=== PATIENT | female | born 1945 | race Caucasian/White ===

== ENCOUNTER 2018-12-20 01:22 | Outpatient (CLI) | payer MEDICARE, BC, SELFPAY ==
--- NOTE | 2018-12-20 10:40 | MERGE_ITS ---
*[facility]* *[facility]* [address] [place] [address] Date of study: 12/20/2018 Transthoracic Echocardiography M-mode, complete 2D, complete spectral Doppler, and color Doppler *STUDY CONCLUSIONS* Summary: 1. Left ventricle: The cavity size was normal. Wall thickness was normal. Systolic function was normal. The estimated ejection fraction was 60-65%. Wall motion was normal; there were no regional wall motion abnormalities. 2. Right ventricle: The cavity size was normal. Systolic function was normal. 3. Pulmonary arteries: Pulmonary systolic pressure was within the normal range, in the range of 25mm Hg to 30mm Hg. 4. Inferior vena cava: The vessel was patent and normal in size. The respirophasic diameter changes were in the normal range (greater than or equal to 50%), consistent with normal central venous pressure. *PATIENT PRESENTATION* Height: 165.1cm ((65in) ) S/D Pressure: 156 / 80 Weight: 86.2kg ((189.6lb) ) BSA: 2.02m^2 Test start time: 10:45 AM. Test stop time: 11:30 AM. PERFORMING Unknown CONSULTING Phillip Reeder Kevin D REFERRING Murray Villar PERFORMING [facility] COBOL APPLICATION DEVELOPER RT Rosi Salvador)(CAROLANN)CLAUDIO *PROCEDURE DATA* Procedure information: This study was interpreted by [facility]. Pertinent images and digital data are archived for permanent storage and are available for subsequent review. No prior study was available for comparison. Study status: Routine. Transthoracic echocardiography. M-mode, complete 2D, complete spectral Doppler, and color Doppler. A Transthoracic Echocardiogram was performed. Scanning was performed from the parasternal, apical, subcostal, and suprasternal notch acoustic windows. Images were obtained using an [id number] cardiac ultrasound machine. Image quality was adequate. Study completion: The patient tolerated the procedure well. There were no complications. History: PMH: Shortness of breath R06.02. *CARDIAC ANATOMY* Left ventricle: The cavity size was normal. Wall thickness was normal. Systolic function was normal. The estimated ejection fraction was 60-65%. Wall motion was normal; there were no regional wall motion abnormalities. Findings consistent with diastolic dysfunction. There was no evidence of elevated ventricular filling pressure by Doppler parameters. Aortic valve: Trileaflet; normal thickness leaflets. Mobility was not restricted. Doppler: Transvalvular velocity was within the normal range. There was no stenosis. There was trivial regurgitation. VTI ratio of LVOT to aortic valve: 0.75. Valve area (VTI): 2.2cm^2. Indexed valve area (VTI): 1.1cm^2/m^2. Peak velocity ratio of LVOT to aortic valve: 0.67. Valve area (Vmax): 2cm^2. Indexed valve area (Vmax): 1cm^2/m^2. Mean velocity ratio of LVOT to aortic valve: 0.62. Valve area (Vmean): 1.8cm^2. Indexed valve area (Vmean): 0.9cm^2/m^2. Mean gradient (S): 3.4mm Hg. Peak gradient (S): 7mm Hg. Aorta: Aortic root: The aortic root was normal in size. Ascending aorta: The ascending aorta was normal in size. Mitral valve: Mildly thickened leaflets. Mobility was not restricted. Doppler: Transvalvular velocity was within the normal range. There was no evidence for stenosis. There was trivial regurgitation. Valve area by pressure half-time: 3.6cm^2. Indexed valve area by pressure half-time: 1.8cm^2/m^2. Peak gradient (D): 3.1mm Hg. Left atrium: The atrium was normal in size. Right ventricle: The cavity size was normal. Systolic function was normal. Pulmonic valve: The pulmonary valve appears to be grossly normal. Doppler: Transvalvular velocity was within the normal range. There was no evidence for stenosis. There was no significant regurgitation. Tricuspid valve: Structurally normal valve. Doppler: Transvalvular velocity was within the normal range. There was no evidence for stenosis. There was mild regurgitation. Pulmonary artery: The main pulmonary artery was normal-sized. Pulmonary systolic pressure was within the normal range, in the range of 25mm Hg to 30mm Hg. Right atrium: The atrium was normal in size. Pericardium: There was no pericardial effusion. Systemic veins: Inferior vena cava: Well visualized. The vessel was patent and normal in size. The respirophasic diameter changes were in the normal range (greater than or equal to 50%), consistent with normal central venous pressure. Baseline ECG: Normal sinus rhythm. Measurements Left ventricle Value Reference LV ID, ED, PLAX 5.2 cm 3.5 - 6.0 LV ID, ES, PLAX 3.5 cm 2.1 - 4.0 LV PW thickness, ED, PLAX 1.0 cm LV end-diastolic volume, 1-p A2C 79 ml LV ejection fraction, 1-p A2C 63 % LV end-diastolic volume, 1-p A4C 74 ml LV ejection fraction, 1-p A4C 68 % LV e', lateral 0.083 m/sec LV E/e', lateral 11 LV e', medial 0.083 m/sec LV E/e', medial 11 LV e', average 0.083 m/sec LV E/e', average 11 Ventricular septum Value Reference IVS thickness, ED, PLAX 0.9 cm LVOT Value Reference LVOT ID, A-P 1.9 cm LVOT area 2.9 cm^2 LVOT peak velocity, S 0.89 m/sec LVOT mean velocity, S 0.55 m/sec LVOT VTI, S 18.7 cm LVOT peak gradient, S 3.2 mm Hg LVOT mean gradient, S 1.5 mm Hg Stroke volume (SV), LVOT DP 54 ml Stroke index (SV/bsa), LVOT DP 27 ml/m^2 Aortic valve Value Reference Aortic valve peak velocity, S 1.3 m/sec Aortic valve mean velocity, S 0.89 m/sec Aortic valve VTI, S 25.0 cm Aortic mean gradient, S 3.4 mm Hg Aortic peak gradient, S 7 mm Hg VTI ratio, LVOT/AV 0.75 Aortic valve area, VTI 2.2 cm^2 Velocity ratio, peak, LVOT/AV 0.67 Aortic valve area, peak velocity 2 cm^2 Velocity ratio, mean, LVOT/AV 0.62 Aortic valve area, mean velocity 1.8 cm^2 Aortic valve area/bsa, mean velocity 0.9 cm^2/m^2 Aorta Value Reference Aortic root ID, ED 3.4 cm Ascending aorta ID, A-P, S 3.1 cm Left atrium Value Reference LA ID, A-P, ES 3.5 cm LA ID/bsa, A-P 1.7 cm/m^2 <=2.2 LA area, ES, A4C 19.5 cm^2 8.8 - 23.4 LA area, ES, A2C 14 cm^2 LA volume, ES, 2-p 44 ml LA volume/bsa, ES, 2-p 22 ml/m^2 LA/aortic root ratio 1.01 Mitral valve Value Reference Mitral E-wave peak velocity 0.88 m/sec Mitral A-wave peak velocity 0.67 m/sec Mitral deceleration time 212 ms 150 - 230 Mitral pressure half-time 61 ms Mitral peak gradient, D 3.1 mm Hg Mitral E/A ratio, peak 1.32 Mitral valve area, PHT, DP 3.6 cm^2 Pulmonary veins Value Reference Pulmonary vein peak velocity, S 0.69 m/sec Pulmonary vein peak velocity, D 0.44 m/sec Pulmonary vein velocity ratio, peak, 1.56 S/D Pulmonary vein A-wave reversal peak 0.31 m/sec velocity Pulmonary vein A-wave reversal 171 ms duration Tricuspid valve Value Reference Tricuspid regurg peak velocity 2.6 m/sec Tricuspid peak RV-RA gradient 26.1 mm Hg Right atrium Value Reference RA area, ES, A4C 14.6 cm^2 8.3 - 19.5 Legend: (L) and (H) jose values outside specified reference range. I have personally reviewed the images and have reviewed and edited the reported findings. Electronically signed by Dilma Saxena 12/20/2018 12:14
== END 2018-12-20 01:42 ==
PROVIDERS: PCP Family Medicine; Visit Provider Internal Medicine
DX: R06.02 Shortness of breath (principal)
CPT/HCPCS: 93306

== ENCOUNTER 2019-07-20 01:17 | Outpatient (CLI) | payer MEDICARE, BC, SELFPAY ==
[2019-07-21 16:34] LABS: Zinc, Serum 0.84 mcg/mL (0.66-1.10)
[2019-07-25 11:36] LABS: Pyridoxal 5-Phosphate (PLP), P 7 mcg/L (5-50)
[2019-07-28 09:36] LABS: Biotin (Vitamin B7), Serum 618.1 pg/mL
== END 2019-07-20 01:37 ==
LOC: LOS 01:17 → LBO 08:37
PROVIDERS: PCP Family Medicine; Visit Provider Otolaryngology Otolaryngology/Facial Plastic Surgery
DX: L21.9 Seborrheic dermatitis, unspecified (principal); L71.0 Perioral dermatitis
CPT/HCPCS: 36415; 84591; 84207; 84630

== ENCOUNTER 2020-06-06 03:30 | Outpatient (CLI) | payer MEDICARE, BC, SELFPAY ==
[2020-06-06 12:52] LABS: Anion Gap 7.5 mmol/L (3-11); BUN 18 mg/dL (7-18); CO2 27.5 mmol/L (21.0-32.0); CREATININE 0.71 mg/dL (0.55-1.02); Calcium 9.4 mg/dL (8.5-10.1); Chloride 105 mmol/L (98-107); Glucose 121 mg/dL (74-106); Potassium 4.4 mmol/L (3.5-5.1); Sodium 140 mmol/L (136-145)
== END 2020-06-06 03:50 ==
PROVIDERS: PCP Nurse Practitioner Family; Visit Provider Family Medicine
DX: T78.3XXA Angioneurotic edema, initial encounter (principal)
CPT/HCPCS: 36415; 80048

== ENCOUNTER 2021-02-28 10:20 | Outpatient (REF) | payer MEDICARE, SELFPAY ==
[2021-03-01 11:17] LABS: Lyme Ab w Rflx to Lyme Confirm Negative (Negative)
[2021-03-04 17:45] LABS: Anaplasma phagocytophilum Negative (Negative); B. miyamotoi PCR Negative (Negative); Babesia divergens/MO-1 Negative (Negative); Babesia duncani Negative (Negative); Babesia microti Negative (Negative); Ehrlichia chaffeensis Negative (Negative); Ehrlichia ewingii/canis Negative (Negative); Ehrlichia muris eauclairensis Negative (Negative)
== END 2021-02-28 10:21 | disposition home or self-care (01) ==
LOC: LBN 10:20
PROVIDERS: Nurse Practitioner Family; PCP Nurse Practitioner Family; Visit Provider Nurse Practitioner Family
DX: W57.XXXA Bitten or stung by nonvenomous insect and other nonvenomous arthropods, initial encounter (principal); T14.8XXA Other injury of unspecified body region, initial encounter
CPT/HCPCS: 87798; 86618

== ENCOUNTER 2021-04-23 17:24 | Outpatient (CLI) | payer MEDICARE, SELFPAY ==
--- NOTE | 2021-04-23 14:30 | DI.RAD_ITS ---
Exam(s) XR FOOT RT COMPLETE EXAM: XR FOOT RT COMPLETE CLINICAL HISTORY: stubbed toes 3-4-5, BRUISE OF TOE, S90.129A. TECHNIQUE: 2D digital imaging was performed. COMPARISON: No exams were available for comparison FINDINGS: BONES: No acute fracture is present. No bony destructive lesion is seen. There is an enthesophyte at the Achilles insertion site. JOINTS: No dislocation present. SOFT TISSUE: There is some swelling of the right 4th toe. IMPRESSION: No acute fracture or dislocation. DATA REPOSITORY: RADIATION DOSE DELIVERED:
== END 2021-04-23 17:44 ==
PROVIDERS: PCP Nurse Practitioner Family; Visit Provider Nurse Practitioner
DX: S90.121A Contusion of right lesser toe(s) without damage to nail, initial encounter (principal); M79.89 Other specified soft tissue disorders
CPT/HCPCS: 73630

== ENCOUNTER 2021-12-09 00:20 | Outpatient (CLI) | payer MEDICARE, SELFPAY ==
--- NOTE | 2021-12-09 11:30 | DI.MAMMO_ITS ---
Exam(s) MAMMO SCREENING EXAM: MAMMO SCREENING CLINICAL HISTORY: screening,z12.39 TECHNIQUE: Mammograms were interpreted according to the usual protocol including computer analysis w [employer] CAD system, tomosynthesis and C-view imaging. COMPARISON: 2014 and 2017 FINDINGS: The breasts are composed of mainly fatty density , Breast Density category A. No suspicious masses or suspicious microcalcifications are seen. No skin thickening or abnormal axillary lymph nodes are seen. There has been no significant change from prior exams. IMPRESSION: BI-RADS Category 1, Negative mammogram Yearly screening mammography is recommended. Breast Density - Category A, fatty density. A negative radiographic report should not delay biopsy if a dominant or clinically suspicious mass is present. Up to ten percent of cancers are not identified on mammography. A negative report may reinforce clinical impression. Adenosis and dense breasts may obscure an underlying neoplasm. False positive reports average 6 to 10%. Patient will receive a letter notifying them of these results.
== END 2021-12-09 00:40 ==
PROVIDERS: PCP Family Medicine; Visit Provider Family Medicine
DX: Z12.31 Encounter for screening mammogram for malignant neoplasm of breast (principal)
CPT/HCPCS: 77063; 77067

== ENCOUNTER 2021-12-09 01:38 | Outpatient (CLI) | payer MEDICARE, SELFPAY ==
[2021-12-09 12:56] LABS: BUN 16 mg/dL (7-18); CREATININE 0.7 mg/dL (0.55-1.02); Calculated LDL 101 mg/dL (<100); Chloride 103 mmol/L (98-107); Cholesterol 206 mg/dL (<200); Glucose 95 mg/dL (74-106); HDL Cholesterol 79 mg/dL (40-60); Potassium 4.3 mmol/L (3.5-5.1); Sodium 141 mmol/L (136-145); TSH (W/Ref FT4) 1.14 uIU/mL (0.36-3.74); Triglyceride 131 mg/dL (<150)
== END 2021-12-09 01:39 | disposition home or self-care (01) ==
LOC: LBO 01:38
PROVIDERS: PCP Family Medicine; Visit Provider Family Medicine
DX: I10 Essential (primary) hypertension (principal); E01.0 Iodine-deficiency related diffuse (endemic) goiter; Z00.00 Encounter for general adult medical examination without abnormal findings
CPT/HCPCS: 36415; 80048; 80061; 84443

== ENCOUNTER 2021-12-13 00:44 | Outpatient (CLI) | payer MEDICARE, SELFPAY ==
--- NOTE | 2021-12-13 08:15 | DI.US_ITS ---
Exam(s) US THYROID EXAM: US THYROID CLINICAL HISTORY: right sided thyroid enlargement,E01.0. TECHNIQUE: Ultrasound thyroid performed using standard protocol. COMPARISON: No exams were available for comparison FINDINGS: ISTHMUS: mm RIGHT LOBE: Size: 4.6 x 2.5 x 3.3 cm Echogenicity: Heterogeneous. Vascularity: Normal. Nodules: The largest nodule in the right lobe is a mixed cystic and solid isoechoic nodule measuring 2.6 x 2.2 x 2.9 cm. This is consistent with a TIRADS level 2 nodule. There is a mixed cystic and shwetha d isoechoic nodule measuring 1.6 x 1.4 x 1.9 cm. This consistent with a TIRADS level 2 nodule. LEFT LOBE: Size: 5.1 x 1 x 1.4 cm Echogenicity: Heterogeneous. Vascularity: Normal. Nodules: There is a 1 x 0.8 x 1.3 cm hypoechoic nodule in the superior pole of the left lobe. This is consistent with a TIRADS level 3 nodule. OTHER FINDINGS: There is a 2 x 0.9 x 1.4 cm hypoechoic extrathyroidal nodule adjacent to the left lob e. It is vascular. This may represent a lymph node, but has a sonographically abnormal appearance. IMPRESSION: 1. Multinodular thyroid gland. 2. 2 x 0.9 x 1.4 cm hypoechoic vascular extrathyroidal nodule adjacent to the left lobe. A CT scan of the neck with contrast is recommended for further evaluation. DATA REPOSITORY:
== END 2021-12-13 01:04 ==
PROVIDERS: PCP Family Medicine; Visit Provider Family Medicine
DX: E04.2 Nontoxic multinodular goiter; E07.89 Other specified disorders of thyroid
CPT/HCPCS: 76536

== ENCOUNTER 2021-12-30 01:20 | Outpatient (CLI) | payer MEDICARE, SELFPAY ==
--- NOTE | 2021-12-30 07:00 | DI.CT_ITS ---
Exam(s) CT NECK W EXAM: CT NECK W CLINICAL HISTORY: neck mass, f/u u/s,e01.0,r22.1. TECHNIQUE: Imaging Protocol: Axial CT angiography was performed with multi-slice acquisition and mu lti-planar and/or 3D reconstructions. CONTRAST MATERIAL: Intravenous: Omnipaque 350 Contrast volume:100 mL COMPARISON: US US THYROID from 12/13/2021 FINDINGS: Nasopharynx: Unremarkable Oropharynx: Calcified bilateral tonsilliths. Otherwise unremarkable. Hypopharynx: Free edge of the epiglottis appears unremarkable as do the aryepiglottic folds. Vocal cords: No obvious mass. Subglottic airway appears unremarkable. Salivary glands: Parotid and submandibular glands appear unremarkable. No masses. No calculi. Thyroid gland: Right thyroid lobe is significantly enlarged and heterogeneous containing nodules. Is thmus exhibits normal thickness. Left thyroid lobe exhibits normal size but also appears to contain nodule(s). LYMPH NODES: Immediately anterior to the left internal jugular vein and intimately associated with th e left sternocleidomastoid muscle is a uniformly enhancing well-defined nodule measuring 1.4 x 1.0 cm nodule which corresponds to the finding described on the recent thyroid ultrasound. No calcificatio ns seen therein. There is another abnormal nodule seen below the left thyroid lobe measuring 1.8 cm wide by 1.4 cm AP by 1.4 cm craniocaudal. This is just above the innominate vein in the uppermost left mediastinum. I t contains hyperdense foci, either enhancing or calcifications. VASCULAR: Patent carotid arteries in the neck. No significant stenosis. IMPRESSION: 1. Two different appearing abnormal nodules in the left side of the neck, as described above. More c ephalad of these is what was described on the recent thyroid ultrasound. The more caudal appears par tially calcified and is in the left suprasternal notch adipose tissue just above the innominate vein. These may or may not be related to the pathology evident in the thyroid gland. It is in seen to no te that these are left-sided abnormalities, where as the majority of pathology in the thyroid gland i s in the abnormally enlarged right thyroid lobe. ENT consultation is recommended.. RADIATION DOSE DELIVERED: 262.27mGy.cm Total DLP DATA REPOSITORY: All CT scans at this facility are submitted to the National Radiology Data Registry (NRDR) Dose Index Registry (DIR) with the [employer] (ACR). RADIATION OPTIMIZATION: All CT scans at this facility use at least one of these dose optimization te chniques: automated exposure control; mA and/or kV adjustment per patient size (includes targeted exa ms where dose is matched to clinical indication); or iterative reconstruction.
[2021-12-30] MEDS: Omnipaque 350 MG/ML 100 ML BTL IJ (08:44)
[2021-12-30] MEDS: Normal Saline Flush 10 ML SYR IVP (08:56)
== END 2021-12-30 01:40 ==
PROVIDERS: PCP Family Medicine; Visit Provider Family Medicine
DX: R22.1 Localized swelling, mass and lump, neck (principal); E01.1 Iodine-deficiency related multinodular (endemic) goiter; E07.89 Other specified disorders of thyroid; J98.59 Other diseases of mediastinum, not elsewhere classified; M62.89 Other specified disorders of muscle
CPT/HCPCS: 70491; J3490

== ENCOUNTER → 2022-06-18 13:02 | Outpatient (CLI) | payer MEDICARE, SELFPAY ==
--- NOTE | 2022-06-18 12:00 | DI.RAD_ITS ---
Exam(s) XR KNEE RT 3V AP,LAT,KEARA EXAM: XR KNEE RT 3V AP,LAT,KEARA CLINICAL HISTORY: Right Knee Pain-M25.561 TECHNIQUE: COMPARISON: No exams were available for comparison FINDINGS: Three views were obtained. Cartilaginous joint spaces appear well maintained. No gross joint effusi on seen on the lateral film. No bony abnormality seen. IMPRESSION: Negative examination of the knee. RADIATION DOSE DELIVERED: Total DLP
== END ==
PROVIDERS: PCP Family Medicine; Visit Provider Family Medicine
DX: M25.561 Pain in right knee (principal)
CPT/HCPCS: 73562

== ENCOUNTER 2022-08-11 01:24 | Outpatient (CLI) | payer MEDICARE, SELFPAY ==
--- NOTE | 2022-08-11 07:45 | DI.US_ITS ---
Exam(s) US THYROID EXAM: US THYROID CLINICAL HISTORY: assess for change,THYROID NODULE,LYMPH NODE ENLARGEMENT,E04.1,R59.9. TECHNIQUE: Ultrasound thyroid performed using standard protocol. COMPARISON: US US THYROID from 12/13/[address] NECK W from 12/30/2021 FINDINGS: ISTHMUS: 2 mm RIGHT LOBE: Size: 5.9 x 2.3 x 3.7 cm Echogenicity: Normal. Vascularity: Normal. Nodules: On the prior exam, 2 separate nodules were measured as well as a cyst at the inferior pole. On the current exam, the nodules were measured as 1 the large nodule. A discrete cystic areas is no t visible at the lower pole. The nodule measures 4.8 x 2.7 x 4 cm smoothly marginated and shows mixe d cystic and solid components. The echogenicity is isoechoic. No echogenic foci are identified. TR 2 LEFT LOBE: Size: 5.0 x 1.4 x 1.3 cm Echogenicity: Heterogeneous. Vascularity: Normal. Nodules: Multiple small nodules. 1.5 x 1.5 x 0.7 centimeter mixed cystic and solid lesion, isoechoic without echogenic foci, TR 2. 1 by 0.9 x 0.8 cm nodule at the lower pole is solid, hypoechoic, with ill-defined margins and without echogenic foci, TR 4. OTHER FINDINGS: There has been no change in size of the markedly hyperemic lymph node seen lateral to the upper pole of the left lobe, measuring 2.0 x 0.9 x 1.4 cm. IMPRESSION: No significant changes size are appearance of the right-sided nodule. No change in the size of the h yperemic lymph node in the left side of the neck. 1 centimeter nodule lower pole left lobe, TR 4, fo llow-up recommended. DATA REPOSITORY:
== END 2022-08-11 01:44 ==
LOC: DI 01:26
PROVIDERS: PCP Family Medicine; Visit Provider Otolaryngology
DX: E04.1 Nontoxic single thyroid nodule (principal); R59.0 Localized enlarged lymph nodes
CPT/HCPCS: 76536

== ENCOUNTER 2022-12-03 02:06 | Outpatient (CLI) | payer MEDICARE, SELFPAY ==
[2022-12-03 12:46] LABS: Anion Gap 6.2 mmol/L (3-11); BUN 17 mg/dL (7-18); CO2 29.8 mmol/L (21.0-32.0); CREATININE 0.8 mg/dL (0.55-1.02); Calcium 9.4 mg/dL (8.5-10.1); Chloride 105 mmol/L (98-107); Estimated GFR 76.31 (mL/min/1.73m2); Glucose 107 mg/dL (74-106); Potassium 4.7 mmol/L (3.5-5.1); Sodium 141 mmol/L (136-145)
[2022-12-03 13:05] LABS: Hemoglobin A1C 5.9 % (<5.7)
== END 2022-12-03 02:07 | disposition home or self-care (01) ==
LOC: LOS 02:06
PROVIDERS: PCP Family Medicine; Visit Provider Family Medicine
DX: I10 Essential (primary) hypertension (principal); R73.01 Impaired fasting glucose; E66.09 Other obesity due to excess calories; Z68.32 Body mass index [BMI] 32.0-32.9, adult
CPT/HCPCS: 36415; 80048; 83036

== ENCOUNTER 2023-01-02 00:35 | Outpatient (CLI) | payer MEDICARE, SELFPAY ==
--- NOTE | 2023-01-02 08:30 | DI.DEXA_ITS ---
Exam(s) XR DEXA BONE DENSITY W/WO ELISE EXAM: XR DEXA BONE DENSITY W/WO ELISE CLINICAL HISTORY: loss of height,N95.9,SCREENING FOR OSTEOPOROSIS TECHNIQUE: H[employer] Horizon C densitometer analysis of left hip, lumbar spine and left forearm. COMPARISON: No exams were available for comparison FINDINGS: Lateral view of the thoracic and lumbar spine shows no evidence of compression fractures. Bone mineral density measurements of the lumbar spine correspond to a total T-score of 1.0, in the n ormal range. Bone mineral density measurements of the left hip correspond to a total T-score of 0.1. The femoral neck T-score is -1.3, in the mildly osteopenic range.. The left forearm bone mineral density measurements correspond to a T-score of the distal 3rd of -0.7 , in the normal range.. IMPRESSION: Normal bone mineral density of the lumbar spine and forearm. Mild osteopenia of the hip.
== END 2023-01-02 00:55 ==
LOC: DI 00:35
PROVIDERS: PCP Family Medicine; Visit Provider Family Medicine
DX: N95.9 Unspecified menopausal and perimenopausal disorder (principal); Z13.820 Encounter for screening for osteoporosis; M85.88 Other specified disorders of bone density and structure, other site
CPT/HCPCS: 77080

== ENCOUNTER → 2023-08-17 02:02 | Outpatient (CLI) | payer MEDICARE, SELFPAY ==
--- NOTE | 2023-08-17 08:00 | DI.US_ITS ---
Exam(s) US THYROID EXAM: US THYROID CLINICAL HISTORY: Enlarged lymph node/assess change thyroid nodule,port wine stain of face,. TECHNIQUE: Ultrasound thyroid performed using standard protocol. COMPARISON: US US THYROID from 08/11/2022 FINDINGS: ISTHMUS: 2 mm RIGHT LOBE: Size: 5.2 x 2.5 x 3.2 cm Echogenicity: Normal. Vascularity: Normal. Nodules: 1. Mid to lower pole mixed cystic and solid, isoechoic smoothly marginated, without echogenic foci, TR 2 LEFT LOBE: Size: 4.5 x 1.5 x 1.7 cm Echogenicity: Normal. Vascularity: Normal. Nodules: The 2 adjacent nodules seen at the lower pole of the left lobe were measured as 1 nodule on the prior exam, 3. And 4. 2. Upper pole right lobe 1.5 x 0.9 x 1.4 cm solid hypoechoic smoothly marginated without echogenic f oci, TR 3 3. 0.9 cm maximal dimension solid nodule hypoechoic smoothly marginated without echogenic foci, TR 4 . 4. 5 millimeter solid isoechoic nodule smoothly marginated without echogenic foci, TR 4. OTHER FINDINGS: Hyperemic lymph node noted of above the left lobe of the thyroid, unchanged in size. 2 cm in length. IMPRESSION: Stable appearance of bilateral thyroid nodules. Stable appearance of hyperemic lymph node near the upper pole of the left lobe of the thyroid. DATA REPOSITORY:
== END ==
PROVIDERS: PCP Family Medicine; Visit Provider Otolaryngology
DX: E04.1 Nontoxic single thyroid nodule (principal); Q82.5 Congenital non-neoplastic nevus; R59.9 Enlarged lymph nodes, unspecified
CPT/HCPCS: 76536

== ENCOUNTER → 2023-11-20 01:02 | Outpatient (CLI) | payer MEDICARE, SELFPAY ==
--- NOTE | 2023-11-20 08:00 | DI.RAD_ITS ---
Exam(s) XR KNEE LT 4V+ EXAM: XR KNEE LT 4V+ CLINICAL HISTORY: left knee pain,PRIMARY OA,M17.0. TECHNIQUE: 2D digital imaging was performed of the left knee. Four images were obtained. Merchant, AP, lateral and PA tunnel views were obtained. COMPARISON: No exams were available for comparison FINDINGS: BONES: No acute fracture is present. No bony destructive lesion is seen. JOINTS: The knee is normally aligned. There are small osteophytes in the medial femoral tibial joint and the posterior patella. No joint effusion is seen. No loose body. SOFT TISSUE: Normal. IMPRESSION: Minimal degenerative changes of the knee. DATA REPOSITORY: RADIATION DOSE DELIVERED:
== END ==
PROVIDERS: PCP Family Medicine; Visit Provider Family Medicine
DX: M17.0 Bilateral primary osteoarthritis of knee (principal)
CPT/HCPCS: 73564

== ENCOUNTER 2023-11-25 03:02 | Outpatient (CLI) | payer MEDICARE, SELFPAY ==
[2023-11-25 12:33] LABS: Anion Gap 5.9 mmol/L (3-11); BUN 17 mg/dL (7-18); CO2 27.1 mmol/L (21.0-32.0); CREATININE 0.8 mg/dL (0.55-1.02); Calculated LDL 94 mg/dL (<100); Chloride 106 mmol/L (98-107); Cholesterol 185 mg/dL (<200); Estimated GFR 75.84 (mL/min/1.73m2); Glucose 114 mg/dL (74-106); HDL Cholesterol 71 mg/dL (40-60); Potassium 3.9 mmol/L (3.5-5.1); Sodium 139 mmol/L (136-145); TSH (W/Ref FT4) 1.76 uIU/mL (0.36-3.74); Triglyceride 101 mg/dL (<150)
== END 2023-11-25 03:03 | disposition home or self-care (01) ==
LOC: LOS 03:02
PROVIDERS: PCP Family Medicine; Visit Provider Family Medicine
DX: M17.0 Bilateral primary osteoarthritis of knee (principal); Z00.00 Encounter for general adult medical examination without abnormal findings; Z13.1 Encounter for screening for diabetes mellitus; Z13.6 Encounter for screening for cardiovascular disorders; E04.1 Nontoxic single thyroid nodule
CPT/HCPCS: 36415; 80048; 80061; 84443

== ENCOUNTER → 2024-02-08 18:57 | Outpatient (CLI) | payer MEDICARE, SELFPAY ==
--- NOTE | 2024-02-08 19:00 | DI.RAD_ITS ---
Exam(s) XR WRIST LT COMPLETE EXAM: XR WRIST LT COMPLETE CLINICAL HISTORY: evaluate fx. TECHNIQUE: 2D digital imaging was performed. COMPARISON: No exams were available for comparison FINDINGS: 3 views No evidence fracture nor dislocation nor significant ulnar variance. There are moderate degenerative changes at the 1st carpometacarpal joint. IMPRESSION: Moderate degenerative change at the 1st carpometacarpal joint, this being the articulation between th e thumb metacarpal and the trapezium bone of the distal carpal row. No fractures. DATA REPOSITORY: RADIATION DOSE DELIVERED:
--- NOTE | 2024-02-08 20:19 | DI.VRAD_ITS ---
PROCEDURE INFORMATION: Exam: XR Left Wrist Exam date and time: 02/08/2024 7:24 PM Age: 78 years old Clinical indication: Left; Patient HX: L wrist pain at base of thumb radiating up arm, eval for FX TECHNIQUE: Imaging protocol: Radiologic exam of the left wrist. Views: 3 or more views. COMPARISON: No relevant prior studies available. FINDINGS: Bones/joints: Degenerative changes. No acute fracture or dislocation Soft tissues: Normal. IMPRESSION: No acute findings. Dictated and Authenticated by: Vinod Wallace MD. Ordering:BLAIR Crenshaw MD
--- NOTE | 2024-02-09 07:07 | W.POCUS ---
[facility] Cardiac Exam DATE OF EXAM: 02/02/24 TIME OF EXAM: 15:14 PROVIDER THAT PERFORMED THE STUDY: Phillip Browne IS THIS A REPEAT EXAM DURING THIS ENCOUNTER: no REASON FOR EXAM: Dyspnea VISUALIZED STRUCTURES: four chambers PERTINENT FINDINGS/IMPRESSION: IVC inspiratory collapsability Exam complete
== END ==
PROVIDERS: PCP Family Medicine; Visit Provider Nurse Practitioner Family
DX: M25.532 Pain in left wrist (principal); M18.12 Unilateral primary osteoarthritis of first carpometacarpal joint, left hand
CPT/HCPCS: 73110

== ENCOUNTER 2025-07-04 22:15 | Outpatient (REF) | payer MEDICARE, SELFPAY ==
[2025-07-04 22:09] LABS: Glucose Negative (Negative)
[2025-07-04 22:16] LABS: WBC >50 HPF (0-5)
[2025-07-04 22:17] LABS: C & S Indicated? Yes
== END 2025-07-04 22:16 | disposition home or self-care (01) ==
LOC: LBN 22:15
PROVIDERS: PCP Family Medicine; Visit Provider Nurse Practitioner Family
DX: N39.0 Urinary tract infection, site not specified (principal)
CPT/HCPCS: 87077; 81003; 81015; 87086; 87186